=== PATIENT | female | born 1935 | race Caucasian/White ===

== ENCOUNTER 2018-06-25 09:53 | Day surgery (SDC) | payer OTHER ==
[2018-06-24 12:41] VITALS: BMI 21.3
[2018-06-25 10:37] VITALS: TEMP 97.9
[2018-06-25] MEDS ORDERED: PROPOFOL 20 ML ONE (11:00)
[2018-06-25 12:45] VITALS: PULSE 61
[2018-06-25 12:57] VITALS: BP 130/60
--- NOTE | 2018-06-26 16:00 | PATH ---
Surgical Pathology Report Patient Name: ERICKSON LEARY [facility]. Rec. #: [id number] /Age/Gender: 1935 (Age: 83) / F Account: [id number] Location: Taken: 06/25/2018 Received: 06/25/2018 Reported: 06/26/2018 Physicians: Deyanira Jacob M.D. Specimen(s) Received A: SECOND PORTION SMALL BOWEL BIOPSY B: BX ANTRUM C: BX GE JUNCTION D: MIDESOPHAGUS BIOPSY Clinical History Dyspepsia Postoperative diagnosis: Gastritis Final Diagnosis A. SECOND PORTION SMALL BOWEL, BIOPSY: SMALL INTESTINAL MUCOSA WITH NO DIAGNOSTIC ABNORMALITIES. B. ANTRUM, BIOPSY: GASTRIC MUCOSA WITH MILD CHRONIC GASTRITIS. IMMUNOSTAIN IS NEGATIVE FOR H. PYLORI ORGANISMS. C. GE JUNCTION, BIOPSY: COLUMNAR (GASTRIC) MUCOSA WITH MILD CHRONIC INFLAMMATION. D. MID ESOPHAGUS, BIOPSY: ESOPHAGEAL (SQUAMOUS) MUCOSA WITH CHANGES CONSISTENT WITH REFLUX ESOPHAGITIS. Electronically Signed Donald Sun M.D. Gross Description A. Received in formalin, labeled "second portion of small bowel biopsy" is a carter, irregular portion of soft tissue measuring 0.3 cm. in greatest dimension. The specimen is submitted in toto in one cassette. B. Received in formalin, labeled "antrum biopsy" is a carter, irregular portion of soft tissue measuring 0.3 cm. in greatest dimension. The specimen is submitted in toto in one cassette. C. Received in formalin, labeled "GE junction biopsy" is a carter, irregular portion of soft tissue measuring 0.3 cm. in greatest dimension. The specimen is submitted in toto in one cassette. D. Received in formalin, labeled "mid esophagus biopsy" is a carter, irregular portion of soft tissue measuring 0.4 cm. in greatest dimension. The specimen is submitted in toto in one cassette. DL/06/25/2018 saudi/06/25/2018
== END 2018-06-25 13:00 | disposition home or self-care (01) ==
LOC: FASU-ENDO 09:53
PROVIDERS: ATTEND Internal Medicine Gastroenterology
PROC: 0DB68ZX Excision of Stomach, Via Natural or Artificial Opening Endoscopic, Diagnostic (ICD-10-PCS; 2018-06-25)
PROC: 0DB28ZX Excision of Middle Esophagus, Via Natural or Artificial Opening Endoscopic, Diagnostic (ICD-10-PCS; 2018-06-25)
PROC: 0DB48ZX Excision of Esophagogastric Junction, Via Natural or Artificial Opening Endoscopic, Diagnostic (ICD-10-PCS; 2018-06-25)
PROC: 0DB98ZX Excision of Duodenum, Via Natural or Artificial Opening Endoscopic, Diagnostic (ICD-10-PCS; principal; 2018-06-25 12:12)
DX: K29.50 Unspecified chronic gastritis without bleeding (principal); K31.89 Other diseases of stomach and duodenum; R10.13 Epigastric pain; R63.4 Abnormal weight loss
CPT/HCPCS: 88305-TC; 88342-TC

== ENCOUNTER 2020-01-01 13:29 | Inpatient (IN) | payer OTHER ==
--- NOTE | 2020-01-01 16:47 | PDOC ---
History of Present Illness - General Chief Complaint: Edema Stated Complaint: SENT BY DR NELSON FOR ADMITTANCE Time Seen by Provider: 01/01/20 16:45 History Source: Patient - History of Present Illness Initial Comments: 01/01/20 16:47 84 year old with b/l lower extremity swelling x 1 week. dizziness with position changes. denies Shortness of breath, chest pain, patient sent by Dr. dumont for admission due to acute b/l pedal edema. daughter reports that patient has been elevating legs for one week with no significant imporvement in symptoms. PMHX: hypertension, hypercholestremia Dr. Durán Past History - Past Medical History Allergies/Adverse Reactions: Allergies Allergy/AdvReac Type Severity Reaction Status Date / Time No Known Allergies Allergy Verified 01/01/20 14:07 Home Medications: Ambulatory Orders Aspirin [ASA -] 81 mg PO HS 11/23/15 Atorvastatin Ca [Lipitor] 20 mg PO DAILY 11/23/15 Diltiazem Cd [Cardizem Cd -] 240 mg PO DAILY 11/23/15 Metoprolol Succinate [Toprol XL -] 50 mg PO HS 11/23/15 Anemia: No Asthma: No Cancer: No Cardiac Disorders: No CVA: No COPD: No CHF: No Dementia: No Diabetes: No GI Disorders: No Disorders: No HTN: Yes Hypercholesterolemia: Yes Liver Disease: No Seizures: No Thyroid Disease: No - Surgical History Abdominal Surgery: No Appendectomy: No Cardiac Surgery: No Cholecystectomy: No Lung Surgery: No Neurologic Surgery: No Orthopedic Surgery: No - Psycho Social/Smoking Cessation Hx Smoking History: Never smoked Have you smoked in the past 12 months: No If you are a former smoker, when did you quit?: 1987 Information on smoking cessation initiated: No Hx Alcohol Use: No Drug/Substance Use Hx: No Substance Use Type: None Hx Substance Use Treatment: No Review of Systems - Review of Systems Able to Perform ROS?: Yes Is the patient limited Mohawk proficient: No Constitutional: No: Symptoms Reported, See HPI, Chills, Diaphoresis, Fever, Loss of Appetite, Malaise, Night Sweats, Weakness, Weight Stable, Unintentional Wgt. Loss, Unexplained wgt Loss, Other *Physical Exam - Vital Signs Last Vital Signs Temp Pulse Resp BP Pulse Ox 97.5 F L 58 L 16 113/45 L 96 01/01/20 13:59 01/01/20 13:59 01/01/20 13:59 01/01/20 13:59 01/01/20 13:59 - Physical Exam General Appearance: Yes: Appropriately Dressed Respiratory/Chest: positive: Lungs Clear, Normal Breath Sounds Extremity: positive: Pedal Edema, Swelling Integumentary: positive: Normal Color, Dry, Warm Neurologic: positive: Fully Oriented, Alert ED Treatment Course - LABORATORY CBC & Chemistry Diagram: 01/01/20 19:18 01/01/20 19:18 ED Progress Note - Progress Note Progress Note: 01/01/20 16:56 A: pedal edema; Hypotension P: cbc cmp BNP US 01/01/20 21:25 p[atient signed out to Ronna Navarro NP. Medical Decision Making - Medical Decision Making 01/01/20 20:48 Patient is having mobility issues due to increasing edema. patient lives alone Discharge - Discharge Information Problems reviewed: Yes Clinical Impression/Diagnosis: Lower extremity edema, Impaired mobility Hypotension Qualifiers: Hypotension type: unspecified hypotension type Qualified Code(s): I95.9 - Hypotension, unspecified - Admission Yes - Follow up/Referral Referrals: Robel Madrigal MD [Primary Care Provider] - - Patient Discharge Instructions - Post Discharge Activity
[2020-01-01 19:39] LABS: HEMATOCRIT 37.3 % (32.4-45.2); HEMOGLOBIN 12.3 GM/dL (10.7-15.3); LYMPH % 26.1 % (8-40); MCH 31.8 pg (25.7-33.7); MCHC 32.9 g/dl (32.0-36.0); MEAN CELL VOLUME 96.6 fl (80-96); MEAN PLT VOLUME 8.5 fl (7.5-11.1); MONO % 9.1 % (3.8-10.2); NEUT % 62.8 % (42.8-82.8); PLATELET COUNT 323 K/MM3 (134-434); RBC 3.86 M/mm3 (3.60-5.2); RDW 15.2 % (11.6-15.6); WHITE BLOOD COUNT 6.3 K/mm3 (4.0-10.0)
[2020-01-01 20:08] LABS: PH,URINE 5.5 (5.0-8.0); URINE APPEARANCE CLEAR; URINE BILIRUBIN NEGATIVE (NEGATIVE); URINE COLOR YELLOW; URINE GLUCOSE (UA) NEGATIVE (NEGATIVE); URINE KETONE TRACE (NEGATIVE); URINE LEUK ESTERASE NEGATIVE (NEGATIVE); URINE NITRITE NEGATIVE (NEGATIVE); URINE PROTEIN NEGATIVE (NEGATIVE); URINE UROBILINOGEN 0.2 mg/dL (0.2-1.0)
[2020-01-01 20:12] LABS: ALBUMIN 3.6 g/dl (3.4-5.0); ALK PHOS 82 U/L (45-117); ANION GAP 6 MMOL/L (8-16); BILIRUBIN,TOTAL 0.4 mg/dL (0.2-1); BLOOD UREA NITROGEN 16.2 mg/dL (7-18); CALCIUM 8.9 mg/dL (8.5-10.1); CHLORIDE 104 mmol/L (98-107); CO2 28 mmol/L (21-32); CREATININE 0.6 mg/dL (0.55-1.3); GLUCOSE,RANDOM 81 mg/dL (74-106); MAGNESIUM 2.5 mg/dL (1.8-2.4); POTASSIUM 3.9 mmol/L (3.5-5.1); SGOT/AST 21 U/L (15-37); SGPT/ALT 27 U/L (13-61); SODIUM 138 mmol/L (136-145); TOT PROT 7.2 g/dl (6.4-8.2)
[2020-01-01 21:05] LABS: INR 0.88 (0.83-1.09); PROTHROMBIN TIME (PATIENT) 10.4 SEC (9.7-13.0)
--- NOTE | 2020-01-01 21:21 | HP ---
Admitting History and Physical - Primary Care Physician PCP: Robel Madrigal - Admission Chief Complaint: Lower Extremity Edema History of Present Illness: This is a 84 y/o woman from home with a PMHx of HTN, HLD. Who presents to the ED from her utilization management nurse's office sent in for admission for lower extremity edema and postural dizziness. Patient reports having increased erythema, swelling to bilateral lower legs x 4 days. Patient reports eating Ivorian food and sandwiches which she attributes to some of her swelling. Patient reports increased dizziness with changes in position. She reports having a presyncopal event 6 months ago when she was walking up a hill without any assistive devices. She reports having gait difficulties if she doesn't hold on to someone. Patient denies fever, chills, MORRISSEY, SOB, CP, palpitations, AP, N/V/D, constipation, dysuria. History Source: Patient Limitations to Obtaining History: No Limitations - Past Medical History Cardiovascular: Yes: HTN, Hyperlipdemia - Smoking History Smoking history: Former smoker Have you smoked in the past 12 months: No If you are a former smoker, when did you quit?: 1987 - Alcohol/Substance Use Hx Alcohol Use: No History of Substance Use: reports: None - Social History Usual Living Arrangement: Yes: Alone ADL: Family Assistance Occupation: Retired History of Recent Travel: No Home Medications - Allergies Allergies/Adverse Reactions: Allergies Allergy/AdvReac Type Severity Reaction Status Date / Time No Known Allergies Allergy Verified 01/01/20 14:07 - Home Medications Home Medications: Ambulatory Orders Aspirin [ASA -] 81 mg PO HS 11/23/15 Atorvastatin Ca [Lipitor] 20 mg PO DAILY 11/23/15 Diltiazem Cd [Cardizem Cd -] 240 mg PO DAILY 11/23/15 Metoprolol Succinate [Toprol XL -] 50 mg PO HS 11/23/15 Home Medications (free text): med list provided by pt: Metoprolol ER 25mg po QD. Diltiazam 240mg po QD. Atorvastatin 20mg po QD. Baby Asa 81mg po QD Family Medical History Family History: Unable to Obtain Review of Systems - Review of Systems Constitutional: reports: No Symptoms Eyes: reports: No Symptoms HENT: reports: No Symptoms Neck: reports: No Symptoms Cardiovascular: reports: Edema Respiratory: reports: No Symptoms Gastrointestinal: reports: No Symptoms Genitourinary: reports: No Symptoms Breasts: reports: No Symptoms Reported Musculoskeletal: reports: Extremity Pain Integumentary: reports: Erythema Neurological: reports: Dizziness, Unsteady Gait Endocrine: reports: No Symptoms Hematology/Lymphatic: reports: No Symptoms Psychiatric: reports: No Symptoms Pain Intensity: 2 Physical Examination Vital Signs: Vital Signs Temperature 97.5 F L 01/01/20 13:59 Pulse Rate 58 L 01/01/20 13:59 Respiratory Rate 16 01/01/20 13:59 Blood Pressure 113/45 L 01/01/20 13:59 O2 Sat by Pulse Oximetry (%) 96 01/01/20 13:59 Constitutional: Yes: No Distress, Calm, Thin Eyes: Yes: WNL, Conjunctiva Clear, EOM Intact, PERRL HENT: Yes: WNL, Atraumatic, Normocephalic Neck: Yes: WNL, Supple, Trachea Midline Cardiovascular: Yes: Regular Rate and Rhythm, S1, S2 Respiratory: Yes: WNL, Regular, CTA Bilaterally Gastrointestinal: Yes: WNL, Normal Bowel Sounds, Soft. No: Tenderness ...Rectal Exam: Yes: Deferred Renal/: Yes: WNL Breast(s): Yes: WNL Musculoskeletal: Yes: WNL Extremities: Yes: Erythema Edema: Yes Edema: LLE: 2+, RLE: 2+ Peripheral Pulses WNL: Yes Integumentary: Yes: Erythema, Venous Stasis Changes Neurological: Yes: WNL, Alert, Oriented, Cran Nerves II-XII Intact ...Motor Strength: WNL Psychiatric: Yes: WNL, Alert, Oriented Labs: CBC, BMP 01/01/20 19:18 01/01/20 19:18 Laboratory Results - last 24 hr 01/01/20 01/01/20 01/01/20 19:18 19:18 19:18 WBC 6.3 RBC 3.86 Hgb 12.3 Hct 37.3 MCV 96.6 H MCH 31.8 MCHC 32.9 RDW 15.2 D Plt Count 323 D MPV 8.5 Absolute Neuts (auto) 3.9 Neutrophils % 62.8 Lymphocytes % 26.1 D Monocytes % 9.1 Eosinophils % 1.0 D Basophils % 1.0 Nucleated RBC % 0 PT with INR 10.40 INR 0.88 PTT (Actin FS) 32.2 Sodium 138 Potassium 3.9 Chloride 104 Carbon Dioxide 28 Anion Gap 6 L BUN 16.2 Creatinine 0.6 Est GFR (CKD-EPI)AfAm 97.69 Est GFR (CKD-EPI)NonAf 84.29 Random Glucose 81 Calcium 8.9 Magnesium 2.5 H Total Bilirubin 0.4 AST 21 ALT 27 Alkaline Phosphatase 82 Creatine Kinase 109 Troponin I < 0.02 B-Natriuretic Peptide Total Protein 7.2 Albumin 3.6 Urine Color Urine Appearance Urine pH Ur Specific Romance Urine Protein Urine Glucose (UA) Urine Ketones Urine Blood Urine Nitrite Urine Bilirubin Urine Urobilinogen Ur Leukocyte Esterase 01/01/20 01/01/20 19:18 19:43 WBC RBC Hgb Hct MCV MCH MCHC RDW Plt Count MPV Absolute Neuts (auto) Neutrophils % Lymphocytes % Monocytes % Eosinophils % Basophils % Nucleated RBC % PT with INR INR PTT (Actin FS) Sodium Potassium Chloride Carbon Dioxide Anion Gap BUN Creatinine Est GFR (CKD-EPI)AfAm Est GFR (CKD-EPI)NonAf Random Glucose Calcium Magnesium Total Bilirubin AST ALT Alkaline Phosphatase Creatine Kinase Troponin I B-Natriuretic Peptide 422.3 Total Protein Albumin Urine Color Yellow Urine Appearance Clear Urine pH 5.5 Ur Specific Romance 1.019 Urine Protein Negative Urine Glucose (UA) Negative Urine Ketones Trace H Urine Blood Negative Urine Nitrite Negative Urine Bilirubin Negative Urine Urobilinogen 0.2 Ur Leukocyte Esterase Negative Current Medications Generic Name Dose Route Start Last Admin Trade Name Freq PRN Reason Stop Dose Admin Aspirin 81 mg 01/02/20 10:00 Asa - PO DAILY ANKITA Atorvastatin Calcium 20 mg 01/02/20 22:00 Lipitor - PO HS ANKITA Diltiazem HCl 240 mg 01/02/20 10:00 Cardizem Cd - PO DAILY ANKITA Metoprolol Succinate 25 mg 01/02/20 10:00 Toprol Xl - PO DAILY ANKITA Intake & Output 12/30/19 12/31/19 01/01/20 01/02/20 23:59 23:59 23:59 23:59 Weight 46.72 kg 46.085 kg Imaging - Results Chest X-ray: Report Reviewed, Image Reviewed Ultrasound: Report Reviewed, Image Reviewed EKG: Image Reviewed Problem List - Problems (1) Lower extremity edema Assessment/Plan: Likely secondary to HF vs Venous Stasis vs DVT Continue cardiac monitoring Appreciate Cardiology consult Wells Score 1 Duplex of LE- neg DVT BNP 422 Chest Xray- no acute chest pathology EKG- reviewed Serial Enzymes Strict INOs Daily weights neurovascular checks Monitor CBC, BMP Consider Vascular consult Code(s): R60.0 - LOCALIZED EDEMA (2) Impaired mobility Assessment/Plan: PT eval Fall precautions Consider STR Code(s): Z74.09 - OTHER REDUCED MOBILITY (3) HTN (hypertension) Assessment/Plan: stable Monitor BP Continue Metoprolol with parameters, Diltazem Monitor renal function Code(s): I10 - ESSENTIAL (PRIMARY) HYPERTENSION (4) HLD (hyperlipidemia) Assessment/Plan: stable Continue Lipitor Monitor LFTs Code(s): E78.5 - HYPERLIPIDEMIA, UNSPECIFIED (5) Hypotension Assessment/Plan: Monitor BP Orthostatics Hold home med based on BP parameters Code(s): I95.9 - HYPOTENSION, UNSPECIFIED Qualifiers: Hypotension type: unspecified hypotension type Qualified Code(s): I95.9 - Hypotension, unspecified Assessment/Plan This is a 84 y/o woman admitted to Telemetry for Lower Extremity Edema, Hypotension for further evaluation of their emergent condition. Plan: See Problem List FEN Fluid Restriction 1L Replete lytes prn Low Na Diet DVT ppx OOB SCDs Heparin SQ Dispo: Requires Inpatient Care Visit type - Emergency Visit Emergency Visit: Yes ED Registration Date: 01/01/20 Care time: The patient presented to the Emergency Department on the above date and was hospitalized for further evaluation of their emergent condition. - New Patient This patient is new to me today: Yes Date on this admission: 01/01/20 - Critical Care Critical Care patient: No
[2020-01-01 21:43] LABS: ACTIVATED PTT 32.2 SECONDS (25.2-36.5)
[2020-01-02 02:24] VITALS: BMI 21.2
[2020-01-02 07:55] LABS: BASO % 0.9 % (0-2.0); EOS % 1.6 % (0-4.5); HEMATOCRIT 31.2 % (32.4-45.2); HEMOGLOBIN 10.4 GM/dL (10.7-15.3); LYMPH % 28.6 % (8-40); MCHC 33.3 g/dl (32.0-36.0); MEAN CELL VOLUME 95.9 fl (80-96); MEAN PLT VOLUME 8.8 fl (7.5-11.1); NEUT % 58.9 % (42.8-82.8); PLATELET COUNT 267 K/MM3 (134-434); RBC 3.26 M/mm3 (3.60-5.2); RDW 15.1 % (11.6-15.6); WHITE BLOOD COUNT 4.8 K/mm3 (4.0-10.0)
[2020-01-02 08:20] LABS: ANION GAP 4 MMOL/L (8-16); BLOOD UREA NITROGEN 14.9 mg/dL (7-18); CHLORIDE 108 mmol/L (98-107); CO2 27 mmol/L (21-32); CREATININE 0.5 mg/dL (0.55-1.3); GLUCOSE,RANDOM 72 mg/dL (74-106); MAGNESIUM 2.3 mg/dL (1.8-2.4); POTASSIUM 4.2 mmol/L (3.5-5.1); SODIUM 140 mmol/L (136-145)
[2020-01-02] MEDS: ASPIRIN 81 MG CHEWABLE TABLETS PO SCH (09:49)
[2020-01-02] MEDS: metoPROLOL SUCCINATE 25 MG TAB.SR.24H (FP) PO SCH (09:49)
[2020-01-02] MEDS ORDERED: ACETAMINOPHEN 325 MG TABLET (FP) PO PRN (15:18)
--- NOTE | 2020-01-02 15:19 | PN ---
Progress Note, Physician Chief Complaint: Lower Extremity Edema Hypotension History of Present Illness: Previous notes and events reviewed awake and alert NAD denies complaints of chest pain or SOB complain of MORRISSEY - Current Medication List Current Medications: Active Medications Acetaminophen (Tylenol -) 650 mg PO Q6H PRN PRN Reason: PAIN LEVEL 1-5 Aspirin (Asa -) 81 mg PO DAILY [facility] Last Admin: 01/02/20 09:49 Dose: 81 mg Atorvastatin Calcium (Lipitor -) 20 mg PO [facility] Diltiazem HCl (Cardizem Cd -) 240 mg PO DAILY [facility] Last Admin: 01/02/20 09:49 Dose: 240 mg Metoprolol Succinate (Toprol Xl -) 25 mg PO DAILY [facility] Last Admin: 01/02/20 09:49 Dose: 25 mg - Objective Vital Signs: Vital Signs Temperature 98.2 F 01/02/20 14:00 Pulse Rate 69 01/02/20 14:00 Respiratory Rate 16 01/02/20 14:00 Blood Pressure 109/59 L 01/02/20 14:00 O2 Sat by Pulse Oximetry (%) 98 01/02/20 09:00 Constitutional: Yes: No Distress, Calm Eyes: Yes: Conjunctiva Clear HENT: Yes: Atraumatic Cardiovascular: Yes: Regular Rate and Rhythm Respiratory: Yes: Regular, CTA Bilaterally Gastrointestinal: Yes: Normal Bowel Sounds, Soft Musculoskeletal: Yes: Muscle Weakness Extremities: Yes: WNL Edema: Yes (lower extremity b/l) Neurological: Yes: Alert, Oriented Psychiatric: Yes: Alert, Oriented Labs: CBC, BMP 01/02/20 05:35 01/02/20 05:35 INR, PTT INR 0.88 (0.83-1.09) 01/01/20 19:18 Problem List - Problems (1) HLD (hyperlipidemia) Assessment/Plan: -Atorvastatin Code(s): E78.5 - HYPERLIPIDEMIA, UNSPECIFIED (2) Lower extremity edema Assessment/Plan: -Vascular doppler shows negative for DVT, 3.7x1.5x1.3cm right popliteal fossa cyst, within cyst posteriorly nonspecfic 2x1cm moderately echogenic nonmobile focus seen which may represent soft tissue nodularity vs intraluminal debris or adherent clotted blood -BNP 422.3 -Cardiology consult -CXR shows no acute pathology -Vascular consult Code(s): R60.0 - LOCALIZED EDEMA (3) Hypotension Assessment/Plan: -monitor BP -orthostatic BP -do not give Metorpolol or Cardizem if HR <60bpm or SBP <100 and/or DBP <60 Code(s): I95.9 - HYPOTENSION, UNSPECIFIED Qualifiers: Hypotension type: unspecified hypotension type Qualified Code(s): I95.9 - Hypotension, unspecified Assessment/Plan see problem list dvt ppx
--- NOTE | 2020-01-02 16:00 | EKG ---
Test Reason : Blood Pressure : / mmHG Vent. Rate : 062 BPM Atrial Rate : 062 BPM P-R Int : 160 ms QRS Dur : 074 ms QT Int : 444 ms P-R-T Axes : 075 068 060 degrees QTc Int : 450 ms NORMAL SINUS RHYTHM NORMAL ECG WHEN COMPARED WITH ECG OF 23-NOV-2015 17:31, NO SIGNIFICANT CHANGE WAS FOUND Confirmed by MD MILLS MOYSES ([id number]) on 01/02/2020 3:59:30 PM Referred By: Confirmed By:KATTY MILLS MD
[2020-01-02] MEDS: HEPARIN NA (PORCINE) 5,000 UNITS/ML 1ML VIAL SQ SCH (21:44)
[2020-01-02] MEDS: ATORVASTATIN CA 20 MG TABLET (FP) PO SCH (21:44)
[2020-01-03 06:24] LABS: HEMATOCRIT 31.3 % (32.4-45.2); HEMOGLOBIN 10.5 GM/dL (10.7-15.3); MCH 32.2 pg (25.7-33.7); MCHC 33.7 g/dl (32.0-36.0); MEAN CELL VOLUME 95.7 fl (80-96); MEAN PLT VOLUME 8.1 fl (7.5-11.1); PLATELET COUNT 258 K/MM3 (134-434); RBC 3.27 M/mm3 (3.60-5.2); RDW 15.4 % (11.6-15.6); WHITE BLOOD COUNT 4.1 K/mm3 (4.0-10.0)
[2020-01-03 07:11] LABS: ALBUMIN 2.7 g/dl (3.4-5.0); BILIRUBIN,TOTAL 0.3 mg/dL (0.2-1); CALCIUM 8.3 mg/dL (8.5-10.1); CREATININE 0.5 mg/dL (0.55-1.3); POTASSIUM 3.7 mmol/L (3.5-5.1); TOT PROT 5.3 g/dl (6.4-8.2)
--- NOTE | 2020-01-03 09:08 | PN ---
Progress Note, Physician Chief Complaint: AWAKE ALERT IN BED FEELS BETTER DENIES CHEST PAIN OR SOB - Current Medication List Current Medications: Active Medications Acetaminophen (Tylenol -) 650 mg PO Q6H PRN PRN Reason: PAIN LEVEL 1-5 Aspirin (Asa -) 81 mg PO DAILY [facility] Last Admin: 01/02/20 09:49 Dose: 81 mg Atorvastatin Calcium (Lipitor -) 20 mg PO HS [facility] Last Admin: 01/02/20 21:44 Dose: 20 mg Diltiazem HCl (Cardizem Cd -) 240 mg PO DAILY [facility] Last Admin: 01/02/20 09:49 Dose: 240 mg Heparin Sodium (Porcine) (Heparin -) 5,000 unit SQ BID [facility] Last Admin: 01/02/20 21:44 Dose: 5,000 unit Metoprolol Succinate (Toprol Xl -) 25 mg PO DAILY [facility] Last Admin: 01/02/20 09:49 Dose: 25 mg - Objective Vital Signs: Vital Signs Temperature 98.1 F 01/03/20 06:00 Pulse Rate 58 L 01/03/20 06:00 Respiratory Rate 20 01/03/20 06:00 Blood Pressure 134/66 01/03/20 06:00 O2 Sat by Pulse Oximetry (%) 96 01/02/20 21:00 Constitutional: Yes: Mild Distress Cardiovascular: Yes: Pulse Irregular Respiratory: Yes: WNL Gastrointestinal: Yes: Soft Genitourinary: Yes: WNL Musculoskeletal: Yes: Muscle Weakness Edema: Yes Neurological: Yes: Pre-Existing Deficit Labs: CBC, BMP 01/03/20 06:05 01/03/20 06:05 INR, PTT INR 0.88 (0.83-1.09) 01/01/20 19:18 Problem List - Problems (1) HLD (hyperlipidemia) Code(s): E78.5 - HYPERLIPIDEMIA, UNSPECIFIED (2) HTN (hypertension) Code(s): I10 - ESSENTIAL (PRIMARY) HYPERTENSION (3) Impaired mobility Code(s): Z74.09 - OTHER REDUCED MOBILITY (4) Intermittent palpitations Code(s): R00.2 - PALPITATIONS Assessment/Plan CARDIAC WORKUP UNDERWAY OOB TO CHAIR PT EVAL SNF PLACEMENT
--- NOTE | 2020-01-03 09:21 | CON.CARD ---
Consult Consult Specialty:: Cardiology for dr. Richey - History of Present Illness History of Present Illness: This is a 84 y/o woman from home with a PMHx of HTN, HLD. Who presents to the ED from her manager clinical applications's office sent in for admission for lower extremity edema and postural dizziness. Patient reports having increased erythema, swelling to bilateral lower legs x 4 days. Patient reports eating Uzbek food and sandwiches which she attributes to some of her swelling. Patient reports increased dizziness with changes in position. She reports having a presyncopal event 6 months ago when she was walking up a hill without any assistive devices. She reports having gait difficulties if she doesn't hold on to someone. Patient denies fever, chills, MORRISSEY, SOB, CP, palpitations, AP, N/V/D, constipation, dysuria. - History Source History Provided By: Patient, Medical Record - Past Medical History Cardio/Vascular: Yes: HTN, Hyperlipdemia ...: No - Alcohol/Substance Use Hx Alcohol Use: No History of Substance Use: reports: None - Smoking History Smoking history: Former smoker Have you smoked in the past 12 months: No If you are a former smoker, when did you quit?: 1987 - Social History ADL: Family Assistance Occupation: Retired History of Recent Travel: No Home Medications - Allergies Allergies/Adverse Reactions: Allergies Allergy/AdvReac Type Severity Reaction Status Date / Time No Known Allergies Allergy Verified 01/01/20 14:07 - Home Medications Home Medications: Ambulatory Orders Aspirin [ASA -] 81 mg PO HS 11/23/15 Atorvastatin Ca [Lipitor] 20 mg PO DAILY 11/23/15 Diltiazem Cd [Cardizem Cd -] 240 mg PO DAILY 11/23/15 Metoprolol Succinate [Toprol XL -] 50 mg PO HS 11/23/15 Review of Systems - Review of Systems Constitutional: reports: No Symptoms Eyes: reports: No Symptoms HENT: reports: No Symptoms Neck: reports: No Symptoms Cardiovascular: reports: Edema Respiratory: reports: No Symptoms Gastrointestinal: reports: No Symptoms Genitourinary: reports: No Symptoms Breasts: reports: No Symptoms Reported Musculoskeletal: reports: No Symptoms Integumentary: reports: No Symptoms Neurological: reports: Dizziness Endocrine: reports: No Symptoms Hematology/Lymphatic: reports: No Symptoms Psychiatric: reports: No Symptoms Vital Signs: Vital Signs Temperature 98.1 F 01/03/20 06:00 Pulse Rate 58 L 01/03/20 06:00 Respiratory Rate 20 01/03/20 06:00 Blood Pressure 134/66 01/03/20 06:00 O2 Sat by Pulse Oximetry (%) 96 01/02/20 21:00 Constitutional: Yes: Well Nourished, No Distress, Calm Eyes: Yes: WNL, Conjunctiva Clear, EOM Intact HENT: Yes: WNL, Atraumatic, Normocephalic Neck: Yes: WNL, Supple, Trachea Midline Respiratory: Yes: WNL, Regular, CTA Bilaterally Gastrointestinal: Yes: WNL, Normal Bowel Sounds Renal/: Yes: WNL Cardiovascular: Yes: WNL, Regular Rate and Rhythm Heart Sounds: Yes: S1, S2 Musculoskeletal: Yes: WNL Extremities: Yes: WNL Edema: LLE: 1+, RLE: 1+ Integumentary: Yes: WNL Neurological: Yes: WNL, Alert, Oriented ...Motor Strength: WNL Psychiatric: Yes: WNL, Alert, Oriented - Other Data Labs, Other Data: CBC, BMP 01/03/20 06:05 01/03/20 06:05 INR, PTT INR 0.88 (0.83-1.09) 01/01/20 19:18 Troponin, BNP 01/02/20 11:45 Troponin I < 0.02 Troponin, BNP 01/02/20 11:45 Troponin I < 0.02 Imaging - Results Chest X-ray: Image Reviewed (no i/e) EKG: Image Reviewed (sr wnl) Problem List - Problems (1) HLD (hyperlipidemia) Code(s): E78.5 - HYPERLIPIDEMIA, UNSPECIFIED (2) HTN (hypertension) Code(s): I10 - ESSENTIAL (PRIMARY) HYPERTENSION (3) Hypotension Code(s): I95.9 - HYPOTENSION, UNSPECIFIED Qualifiers: Hypotension type: unspecified hypotension type Qualified Code(s): I95.9 - Hypotension, unspecified (4) Impaired mobility Code(s): Z74.09 - OTHER REDUCED MOBILITY (5) Lower extremity edema Code(s): R60.0 - LOCALIZED EDEMA (6) Intermittent palpitations Code(s): R00.2 - PALPITATIONS (7) Palpitations Code(s): R00.2 - PALPITATIONS (8) UTI (urinary tract infection) Code(s): N39.0 - URINARY TRACT INFECTION, SITE NOT SPECIFIED Qualifiers: Urinary tract infection type: site unspecified Hematuria presence: without hematuria Qualified Code(s): N39.0 - Urinary tract infection, site not specified Assessment/Plan HTN HLP L ext edema elevated BNP dizziness nl ekg nl CXR no DVT on US Plan; Telemetry ECHO Obtain outpatient w/u. DVT PLx Coverage for dr. RICHEY
[2020-01-03] MEDS: ASPIRIN 81 MG CHEWABLE TABLETS PO SCH (09:33)
[2020-01-03] MEDS: HEPARIN NA (PORCINE) 5,000 UNITS/ML 1ML VIAL SQ SCH ×2 (09:33→21:30)
[2020-01-03] MEDS: metoPROLOL SUCCINATE 25 MG TAB.SR.24H (FP) PO SCH (09:34)
--- NOTE | 2020-01-03 14:36 | EKG ---
Test Reason : Blood Pressure : / mmHG Vent. Rate : 061 BPM Atrial Rate : 061 BPM P-R Int : 142 ms QRS Dur : 078 ms QT Int : 422 ms P-R-T Axes : 062 060 055 degrees QTc Int : 424 ms NORMAL SINUS RHYTHM NONSPECIFIC ST ABNORMALITY BORDERLINE ECG Confirmed by MD LINA, KATTY ([id number]) on 01/03/2020 2:36:38 PM Referred By: Sirisha ANAYA Confirmed By:KATTY MILLS MD
[2020-01-03] MEDS: ATORVASTATIN CA 20 MG TABLET (FP) PO SCH (21:30)
--- NOTE | 2020-01-04 08:18 | CONSULT ---
Consult Consult Specialty:: Vascular Surgery Reason for Consultation:: LE edema - History of Present Illness Chief Complaint: increased LE edema History of Present Illness: Called to mayur 84 y/o woman who was sent in from her Cardiologists office secondary to LE swelling/edema with associated postural dizziness. Per medical charting, patient c/o an increase in swelling to her lower extremity over the past 4 days. Also having episodes of dizziness if she changes her position too quickly. She reports having a pre-syncopal event ~ 6 months ago while walking up a hill. Admits to gait instability. Doesn'y use a cane or walker assist devices. Denies n/v/f/c, MORRISSEY, SOB, CP, palpitations, irregular heart beat - History Source History Provided By: Patient, Medical Record Limitations to Obtaining History: No Limitations - Past Medical History Cardio/Vascular: Yes: HTN, Hyperlipdemia ...: No - Alcohol/Substance Use Hx Alcohol Use: No History of Substance Use: reports: None - Smoking History Smoking history: Former smoker Have you smoked in the past 12 months: No If you are a former smoker, when did you quit?: 1987 - Social History ADL: Family Assistance Occupation: Retired History of Recent Travel: No <Hermes Phipps - Last Filed: 01/04/20 08:25> Home Medications <Hermes Phipps - Last Filed: 01/04/20 08:25> <Roger Brar - Last Filed: 01/05/20 08:35> - Allergies Allergies/Adverse Reactions: Allergies Allergy/AdvReac Type Severity Reaction Status Date / Time No Known Allergies Allergy Verified 01/01/20 14:07 - Home Medications Home Medications: Ambulatory Orders Aspirin [ASA -] 81 mg PO HS 11/23/15 Atorvastatin Ca [Lipitor] 20 mg PO DAILY 11/23/15 Diltiazem Cd [Cardizem Cd -] 240 mg PO DAILY 11/23/15 Metoprolol Succinate [Toprol XL -] 50 mg PO HS 11/23/15 Acetaminophen [Tylenol .Regular Strength -] 650 mg PO Q6H PRN tablet 01/04/20 Aspirin [ASA -] 81 mg PO DAILY tab.chew 01/04/20 Atorvastatin Ca [Lipitor] 20 mg PO HS tablet 01/04/20 Diltiazem Cd [Cardizem Cd -] 240 mg PO DAILY cap.cd.24h 01/04/20 Metoprolol Succinate [Toprol XL -] 25 mg PO DAILY tab.sr.24h 01/04/20 Family Medical History Family History: Unremarkable <Hermes Phipps P - Last Filed: 01/04/20 08:25> Review of Systems - Review of Systems Constitutional: reports: No Symptoms Eyes: reports: No Symptoms HENT: reports: No Symptoms Neck: reports: No Symptoms Cardiovascular: reports: No Symptoms Respiratory: reports: No Symptoms Gastrointestinal: reports: No Symptoms Genitourinary: reports: No Symptoms Breasts: reports: No Symptoms Reported Musculoskeletal: reports: No Symptoms Integumentary: reports: No Symptoms Neurological: reports: No Symptoms Endocrine: reports: No Symptoms Hematology/Lymphatic: reports: No Symptoms Psychiatric: reports: No Symptoms <Hermes Phipps P - Last Filed: 01/04/20 08:25> Physical Exam Vital Signs: Vital Signs Temperature 98.4 F 01/04/20 06:00 Pulse Rate 55 L 01/04/20 06:00 Respiratory Rate 20 01/04/20 06:00 Blood Pressure 123/63 01/04/20 06:00 O2 Sat by Pulse Oximetry (%) 96 01/03/20 21:00 Constitutional: Yes: Well Nourished, No Distress, Calm Eyes: Yes: WNL, Conjunctiva Clear, EOM Intact HENT: Yes: WNL, Atraumatic, Normocephalic Neck: Yes: WNL, Supple, Trachea Midline Cardiovascular: Yes: WNL, Regular Rate and Rhythm Respiratory: Yes: WNL, Regular, CTA Bilaterally Gastrointestinal: Yes: WNL, Normal Bowel Sounds, Soft Renal/: Yes: WNL Musculoskeletal: Yes: WNL Extremities: Yes: WNL. No: Cold, Cool, Cyanosis, Delayed Capillary Refill, Erythema Edema: LLE: 1+, RLE: 1+ Peripheral Pulses WNL: Yes Integumentary: No: Erythema, Pressure Ulcer, Venous Stasis Changes Neurological: Yes: WNL, Alert, Oriented ...Motor Strength: WNL Psychiatric: Yes: WNL, Alert, Oriented Labs: CBC, BMP 01/03/20 06:05 01/03/20 06:05 <Hermes Phipps P - Last Filed: 01/04/20 08:25> Vital Signs: Vital Signs Temperature 98.0 F 01/05/20 08:30 Pulse Rate 60 01/05/20 08:30 Respiratory Rate 18 01/05/20 08:30 Blood Pressure 103/66 01/05/20 08:30 O2 Sat by Pulse Oximetry (%) 98 01/04/20 21:00 Labs: CBC, BMP 01/03/20 06:05 01/03/20 06:05 <Roegr Brar - Last Filed: 01/05/20 08:35> Imaging - Results X-ray: Report Reviewed, Image Reviewed <Hermes Phipps P - Last Filed: 01/04/20 08:25> Problem List - Problems (1) Lower extremity edema Assessment/Plan: Palpable DP/PT bilat. BNP slightly elevated. No evidence of fluid overloaded tissue. Making urine. No wounds/erythema to LE bilat. No weeping edema. Cont LE elevation while seated in chair of supine in bed. Cardio following No further need for vascular input. Re-consult PRN Above discussed with my attending and agrees. On behalf of Dr. Brar, thank you for the opportunity to participate in your patient's care. Code(s): R60.0 - LOCALIZED EDEMA (2) HLD (hyperlipidemia) Code(s): E78.5 - HYPERLIPIDEMIA, UNSPECIFIED (3) HTN (hypertension) Code(s): I10 - ESSENTIAL (PRIMARY) HYPERTENSION <Hermes Phipps P - Last Filed: 01/04/20 08:25> Assessment/Plan History reviewed and patient examined. Exacerbation of mild leg edema due to fluid retention. Now improved following aggressive diuresis. Minimal edema now. Continue medical management, leg elevation and support hose as needed. No vascular testing or intervention indicated at this time. <Roger Brar - Last Filed: 01/05/20 08:35> Visit type - Emergency Visit Emergency Visit: No - New Patient This patient is new to me today: Yes Date on this admission: 01/04/20 - Critical Care Critical Care patient: No <Hermes Phipps - Last Filed: 01/04/20 08:25>
--- NOTE | 2020-01-04 08:47 | DS ---
Physical Examination Vital Signs: Vital Signs Temperature 98.4 F 01/04/20 06:00 Pulse Rate 55 L 01/04/20 06:00 Respiratory Rate 01/04/20 06:00 Blood Pressure 123/63 01/04/20 06:00 O2 Sat by Pulse Oximetry (%) 96 01/03/20 21:00 Findings/Remarks: AWAKE ALERT FEELING BETTER Constitutional: Yes: No Distress HENT: Yes: WNL Neck: Yes: WNL Cardiovascular: Yes: Pulse Irregular Respiratory: Yes: WNL Renal/: Yes: WNL Musculoskeletal: Yes: WNL Edema: No Integumentary: Yes: WNL Wound/Incision: Yes: Clean/Dry Neurological: Yes: Pre-Existing Deficit ...Motor Strength: WNL Psychiatric: Yes: WNL Labs: CBC, BMP 01/03/20 06:05 01/03/20 06:05 Discharge Summary Problems reviewed: Yes Reason For Visit: EDEMA OF LOWER EXTREMITY,IMPAIRED MOBILITY,HYPOTEN Current Active Problems HLD (hyperlipidemia) (Acute) HTN (hypertension) (Acute) Hypotension (Acute) Impaired mobility (Acute) Lower extremity edema (Acute) Procedures: Principal: ECHO Hospital Course: ADMITTED MONITORED FOR WEAKNESS, DIZZINESS CARDIAC WORKUP ON TELEMETRY NO ACUTE CHANGES CAN F/U WITH DR KILGORE CARDIOLOGY OUTPATIENT Condition: Stable - Instructions Diet, Activity, Other Instructions: SEE DR KILGORE CERTIFIED NUCLEAR MEDICINE TECHNOLOGIST IN 1 WEEK LOW SALT DIET OUTPATIENT PT/PACKAGE CENTER SUPERVISOR Referrals: Robel Madrigal MD [Primary Care Provider] - Disposition: VNS/HOME HEALTH CARE - Home Medications Comprehensive Discharge Medication List: Ambulatory Orders Aspirin [ASA -] 81 mg PO HS 11/23/15 Atorvastatin Ca [Lipitor] 20 mg PO DAILY 11/23/15 Diltiazem Cd [Cardizem Cd -] 240 mg PO DAILY 11/23/15 Metoprolol Succinate [Toprol XL -] 50 mg PO HS 11/23/15 Acetaminophen [Tylenol .Regular Strength -] 650 mg PO Q6H PRN tablet 01/04/20 Aspirin [ASA -] 81 mg PO DAILY tab.chew 01/04/20 Atorvastatin Ca [Lipitor] 20 mg PO HS tablet 01/04/20 Diltiazem Cd [Cardizem Cd -] 240 mg PO DAILY cap.cd.24h 01/04/20 Heparin - 5,000 unit SQ BID vial 01/04/20 Metoprolol Succinate [Toprol XL -] 25 mg PO DAILY tab.sr.24h 01/04/20
[2020-01-04] MEDS: HEPARIN NA (PORCINE) 5,000 UNITS/ML 1ML VIAL SQ SCH ×2 (10:00→22:29)
[2020-01-04] MEDS: metoPROLOL SUCCINATE 25 MG TAB.SR.24H (FP) PO SCH (10:01)
[2020-01-04] MEDS: ASPIRIN 81 MG CHEWABLE TABLETS PO SCH (10:01)
--- NOTE | 2020-01-04 10:01 | ECHO ---
Name: ERICKSON LEARY Exam:Adult Echocardiogram Study Date: 01/04/2020 09:02 AM Age: 84 yrs Reason For Study: EF Height: 58 in Weight: 99 lb BSA: 1.4 m2 MMode/2D Measurements & Calculations RVDd: 2.9 cm Ao root diam: 2.6 cm IVSd: 0.90 cm LA dimension: 3.3 cm LVIDd: 3.3 cm ACS: 1.5 cm LVIDs: 2.2 cm LVPWd: 0.85 cm EDV(Teich): 43.3 ml LVOT diam: 2.0 cm ESV(Teich): 16.3 ml LAV (MOD-bp): 54.0 ml TAPSE: 2.6 cm RV S Tristen: 11.9 cm/sec Doppler Measurements & Calculations MV E max tristen: 100.4 cm/sec Ao V2 max: 153.7 cm/sec MV A max tristen: 85.5 cm/sec Ao max P.4 mmHg MV E/A: 1.2 Ao V2 mean: 103.4 cm/sec MV dec time: 0.22 sec Ao mean P.7 mmHg Ao V2 VTI: 31.7 cm CHILO(I,D): 2.0 cm2 CHILO(V,D): 1.8 cm2 LV V1 max P.2 mmHg MR max tristen: 409.3 cm/sec LV V1 mean P.6 mmHg MR max P.0 mmHg LV V1 max: 89.9 cm/sec LV V1 mean: 57.7 cm/sec LV V1 VTI: 20.3 cm SV(LVOT): 63.2 ml TR max tristen: 247.6 cm/sec TR max P.8 mmHg PA V2 max: 77.4 cm/sec Med Peak E' Tristen: 8.9 cm/sec PA max P.4 mmHg Med E/e': 11.3 Lat Peak E' Tristen: 9.8 cm/sec Lat E/e': 10.2 Pulm Sys Tristen: 69.1 cm/sec Pulm Acosta Tristen: 47.7 cm/sec Pulm S/D: 1.4 Procedure Study Quality: Fair. Left Ventricle The left ventricular size, thickness and function are normal. The left ventricular ejection fraction is normal. Ejection Fraction = 55-60%. Left Ventricular Filling pattern is normal for age. Right Ventricle The right ventricle is normal size. The right ventricular systolic function is normal. Atria The left atrium is mildly dilated. Right atrial size is normal. Mitral Valve There is mild mitral valve thickening. There is mild mitral regurgitation. Tricuspid Valve The tricuspid valve is not well visualized, but is grossly normal. There is mild tricuspid regurgitat ion. Right ventricular systolic pressure is normal. Aortic Valve Mildly calcified. No hemodynamically significant valvular aortic stenosis. Mild aortic regurgitation. Pulmonic Valve The pulmonic valve is not well visualized. Great Vessels The aortic root is normal size. Pericardium/Pleura There is no pericardial effusion. Interpretation Summary LV: Normal size,thickness and function, EF 55-60% RV: Normal LA: mildly dilated Mild mitral regurgitation Mild tricuspid regurgitation, normal RVSP Mildly calcied aortic valve, mild reurgitation. Deepika Solorzano 01/04/2020 10:01 AM
--- NOTE | 2020-01-04 14:44 | PN ---
Progress Note, Physician Chief Complaint: Events noted Not in distress History of Present Illness: Patient was seen and examined. Awake and alert. Chart was reviewed Denies chest pain, SOB or palpitations - Current Medication List Current Medications: Active Medications Acetaminophen (Tylenol -) 650 mg PO Q6H PRN PRN Reason: PAIN LEVEL 1-5 Aspirin (Asa -) 81 mg PO DAILY [facility] Last Admin: 01/04/20 10:01 Dose: 81 mg Atorvastatin Calcium (Lipitor -) 20 mg PO HS [facility] Last Admin: 01/03/20 21:30 Dose: 20 mg Diltiazem HCl (Cardizem Cd -) 240 mg PO DAILY [facility] Last Admin: 01/04/20 10:01 Dose: 240 mg Heparin Sodium (Porcine) (Heparin -) 5,000 unit SQ BID [facility] Last Admin: 01/04/20 10:00 Dose: 5,000 unit Metoprolol Succinate (Toprol Xl -) 25 mg PO DAILY [facility] Last Admin: 01/04/20 10:01 Dose: 25 mg - Objective Vital Signs: Vital Signs Temperature 98 F 01/04/20 14:00 Pulse Rate 59 L 01/04/20 14:00 Respiratory Rate 20 01/04/20 14:00 Blood Pressure 127/67 01/04/20 14:00 O2 Sat by Pulse Oximetry (%) 100 01/04/20 09:00 Eyes: Yes: PERRL HENT: Yes: Atraumatic Neck: Yes: Supple Cardiovascular: Yes: Regular Rate and Rhythm, S1, S2 Respiratory: Yes: CTA Bilaterally Gastrointestinal: Yes: Normal Bowel Sounds, Soft. No: Tenderness Edema: No Additional Findings/Remarks: - Review of Systems Constitutional: denies: Chills, Fever Cardiovascular: denies Shortness of Breath. denies: Chest Pain, Palpitations Respiratory: denies Cough, SOB, SOB on Exertion. denies: Hemoptysis, Orthopnea , PND Gastrointestinal: denies: Abdominal Pain, Constipation, Diarrhea, Melena, Nausea , Rectal Bleeding, Vomiting Musculoskeletal: denies: Back Pain, Joint Pain Neurological: denies: Dizziness, Headache, Seizure, Syncope Labs: CBC, BMP 01/03/20 06:05 01/03/20 06:05 Problem List - Problems (1) HLD (hyperlipidemia) Code(s): E78.5 - HYPERLIPIDEMIA, UNSPECIFIED Qualifiers: Hyperlipidemia type: pure hypercholesterolemia Qualified Code(s): E78.00 - Pure hypercholesterolemia, unspecified; E78.0 - Pure hypercholesterolemia (2) Lower extremity edema Code(s): R60.0 - LOCALIZED EDEMA (3) HTN (hypertension) Code(s): I10 - ESSENTIAL (PRIMARY) HYPERTENSION Qualifiers: Hypertension type: essential hypertension Qualified Code(s): I10 - Essential (primary) hypertension Assessment/Plan 1. HTN 2. Hypercholesterolemia 3. Dizziness PLAN: 1. Echocardiography to assess LV/RV and valvular function 2. Continue telemetry monitoring 3. Continue Metoprolol ER 25 mg QD and Cardizem CD 240 mg QD 4. ASA 81 mg QD 5. Atorvastatin 20 mg QD 6. DVT prophylaxis Rufino Chavira MD
[2020-01-04] MEDS: ATORVASTATIN CA 20 MG TABLET (FP) PO SCH (22:29)
[2020-01-05 08:31] VITALS: BP 103/66; PULSE 60; TEMP 98
--- NOTE | 2020-01-05 08:47 | PN ---
Progress Note (short form) - Note Progress Note: AWAKE ALERT FEELS GOOD WANTS TO GOME WITH VNS FORMS COMPLETED CLEARED FOR DISCHARGE Problem List - Problems (1) HLD (hyperlipidemia) Code(s): E78.5 - HYPERLIPIDEMIA, UNSPECIFIED Qualifiers: Hyperlipidemia type: pure hypercholesterolemia Qualified Code(s): E78.00 - Pure hypercholesterolemia, unspecified; E78.0 - Pure hypercholesterolemia (2) HTN (hypertension) Code(s): I10 - ESSENTIAL (PRIMARY) HYPERTENSION Qualifiers: Hypertension type: essential hypertension Qualified Code(s): I10 - Essential (primary) hypertension (3) Impaired mobility Code(s): Z74.09 - OTHER REDUCED MOBILITY (4) Intermittent palpitations Code(s): R00.2 - PALPITATIONS
[2020-01-05] MEDS: ASPIRIN 81 MG CHEWABLE TABLETS PO SCH (09:25)
[2020-01-05] MEDS: metoPROLOL SUCCINATE 25 MG TAB.SR.24H (FP) PO SCH (09:25)
[2020-01-05] MEDS: HEPARIN NA (PORCINE) 5,000 UNITS/ML 1ML VIAL SQ SCH (09:26)
--- NOTE | 2020-01-05 11:23 | PN ---
Progress Note, Physician Chief Complaint: Events noted Not in distress History of Present Illness: Patient was seen and examined. Awake and alert. Chart was reviewed Denies chest pain, SOB or palpitations - Current Medication List Current Medications: Active Medications Acetaminophen (Tylenol -) 650 mg PO Q6H PRN PRN Reason: PAIN LEVEL 1-5 Aspirin (Asa -) 81 mg PO DAILY [facility] Last Admin: 01/05/20 09:25 Dose: 81 mg Atorvastatin Calcium (Lipitor -) 20 mg PO HS [facility] Last Admin: 01/04/20 22:29 Dose: 20 mg Diltiazem HCl (Cardizem Cd -) 240 mg PO DAILY [facility] Last Admin: 01/05/20 09:25 Dose: 240 mg Heparin Sodium (Porcine) (Heparin -) 5,000 unit SQ BID [facility] Last Admin: 01/05/20 09:26 Dose: 5,000 unit Metoprolol Succinate (Toprol Xl -) 25 mg PO DAILY [facility] Last Admin: 01/05/20 09:25 Dose: 25 mg - Objective Vital Signs: Vital Signs Temperature 98.0 F 01/05/20 08:30 Pulse Rate 60 01/05/20 08:30 Respiratory Rate 18 01/05/20 08:30 Blood Pressure 103/66 01/05/20 08:30 O2 Sat by Pulse Oximetry (%) 98 01/04/20 21:00 Eyes: Yes: PERRL HENT: Yes: Atraumatic Neck: Yes: Supple Cardiovascular: Yes: Regular Rate and Rhythm, S1, S2 Respiratory: Yes: CTA Bilaterally Gastrointestinal: Yes: Normal Bowel Sounds, Soft. No: Tenderness Edema: No Additional Findings/Remarks: - Review of Systems Constitutional: denies: Chills, Fever Cardiovascular: denies Shortness of Breath. denies: Chest Pain, Palpitations Respiratory: denies Cough, SOB, SOB on Exertion. denies: Hemoptysis, Orthopnea , PND Gastrointestinal: denies: Abdominal Pain, Constipation, Diarrhea, Melena, Nausea , Rectal Bleeding, Vomiting Musculoskeletal: denies: Back Pain, Joint Pain Neurological: denies: Dizziness, Headache, Seizure, Syncope Problem List - Problems (1) HLD (hyperlipidemia) Code(s): E78.5 - HYPERLIPIDEMIA, UNSPECIFIED Qualifiers: Hyperlipidemia type: pure hypercholesterolemia Qualified Code(s): E78.00 - Pure hypercholesterolemia, unspecified; E78.0 - Pure hypercholesterolemia (2) Lower extremity edema Code(s): R60.0 - LOCALIZED EDEMA (3) HTN (hypertension) Code(s): I10 - ESSENTIAL (PRIMARY) HYPERTENSION Qualifiers: Hypertension type: essential hypertension Qualified Code(s): I10 - Essential (primary) hypertension Assessment/Plan 1. HTN 2. Hypercholesterolemia 3. Dizziness PLAN: 1. Echocardiography was reviewed 2. Continue Metoprolol ER 25 mg QD and Cardizem CD 240 mg QD 3. ASA 81 mg QD 4. Atorvastatin 20 mg QD 5. DVT prophylaxis Discharge planning Rufino Chavira MD
== END 2020-01-05 11:52 | disposition home health service (06) | DRG 149 ==
LOC: JER 13:29 → JERBED 21:02 → J4S 01-02 01:41
PROVIDERS: ADMIT Internal Medicine; ATTEND Family Medicine
DX: R42 Dizziness and giddiness (principal); I95.9 Hypotension, unspecified; R60.0 Localized edema; E78.5 Hyperlipidemia, unspecified; I10 Essential (primary) hypertension; R26.81 Unsteadiness on feet
CPT/HCPCS: 36415; 71046-TC-FY; 80048; 80053; 81003; 82550; 83735; 83880; 84100; 84484; 85025; 85027; 85610; 85730; 93005; 93010; 93306-TC; 93970-TC; 97116-GP; 97161-GP; 99283-25; J1644